=== PATIENT | female | born 1975 | race Caucasian/White ===

== ENCOUNTER → 2016-07-11 | Day surgery (SDC) | payer OTHER ==
[~2016-07-11] VITALS: Ht 172.7 cm; Wt 59.0 kg
--- NOTE | 2016-07-11 17:22 | Operative Report ---
Operative/Inv Procedure Report Surgery Date: 07/11/16 Name of Procedure: Hysteroscopy endometrial ablation Pre-Operative Diagnosis: Menorrhagia Post-Operative Diagnosis: Same Estimated Blood Loss: scant Surgeon/Sales Consultant: EFREN WRIGHT,BAILEY Farfan Anesthesia: local monitored anesthesi Specimens: none Complications: none Operative/Procedure Note Note: The patient was brought to the operating room placed in dorsal supine position a timeout was done with the patient awake. After the induction of anesthesia second timeout was done patient was placed in low stirrups examination under anesthesia was performed a speculum was placed in the vagina the anterior lip of the cervix was grasped with a single-tooth tenaculum. The endocervical canal was dilated and a hysteroscope was introduced noting normal findings photos were taken. the uterus was sounded to 10 cm the cervix was measured to be 4.5 cm the NovaSure device was therefore set 5.5 cm the NovaSure device was seated the width of the endometrial canal was noted to be 2.5 Cm after testing for integrity A1 minute treatment cycle was undertaken there were no complications single-tooth tenaculum was removed and the patient was moved to recovery in good condition sponge instrument and needle counts were correct 3
== END ==
LOC: STS 02:30
DX: N92.0 Excessive and frequent menstruation with regular cycle (principal)
CPT/HCPCS: 81025; J2250